=== PATIENT | male | born 1960 | race Two or more races ===

== ENCOUNTER 2017-07-03 08:13 | Inpatient (IN) | payer MEDICARE, MEDICAID ==
[~2017-07-03] VITALS: Ht 175.3 cm; Wt 123.3 kg
[2017-07-03] MEDS ORDERED: ALPR1TAB2 PO (08:56)
[2017-07-03] MEDS ORDERED: LISI5TAB7 PO (08:56)
[2017-07-03] MEDS ORDERED: LEVO200T5 PO (08:56)
[2017-07-03] MEDS ORDERED: ASPI-650 PO (08:56)
[2017-07-03] MEDS ORDERED: SODIUM CHLORIDE FLUSH 10ML SYR IVF ONE (09:00)
[2017-07-03 09:10] LABS: HEMATOCRIT 47.4 % (39.2-51.8); HEMOGLOBIN 16.2 g/dL (13.7-18.0); WHITE BLOOD COUNT 11.3 x10^3/uL (3.4-10)
[2017-07-03 09:19] LABS: ASPARTATE AMINO TRANSFERASE 31 U/L (15-37); BLOOD UREA NITROGEN 14 mg/dL (7-18)
[2017-07-03] MEDS ORDERED: DEXAMETHASONE 4 MG/ML, 1ML IVPush SCH ×2 (10:30→11:00)
[2017-07-03] MEDS ORDERED: DEXAMETHASONE 4 MG/ML, 1ML ONE (10:38)
[2017-07-03] MEDS ORDERED: morphine SULFATE 10 MG/ML, 1ML ONE ×2 (10:39→12:25)
[2017-07-03] MEDS ORDERED: GADOBUTROL 10 MMOL/10 ML PFS ONE (10:58)
[2017-07-03] MEDS ORDERED: MORPHINE SULFATE 4 MG/ML, 1ML IVPush ONE (11:00)
[2017-07-03] MEDS ORDERED: SODIUM CHLORIDE FLUSH 10ML SYR IVF PRN (11:30)
[2017-07-03] MEDS: LEVETIRACETAM 500 MG in SODIUM CHLORIDE 0.9% 100 ML IV SCH ×2 (11:43→23:00)
[2017-07-03] MEDS ORDERED: NS + 20MEQ KCL 1,000 ML IV SCH (12:10)
[2017-07-03] MEDS ORDERED: ONDANSETRON 2MG/ML, 2ML IVPush PRN (12:30)
[2017-07-03] MEDS ORDERED: ACETAMINOPHEN 325 MG TABLET PO PRN (12:30)
[2017-07-03] MEDS ORDERED: POLYETHYLENE GLYCOL 17 GM PACKET PO PRN (12:30)
[2017-07-03] MEDS: DEXAMETHASONE 4 MG TABLET PO SCH ×3 (12:30→20:06)
[2017-07-03] MEDS: morphine SULFATE 10 MG/ML, 1ML IVPush PRN ×4 (12:37→23:12)
[2017-07-03] MEDS: LEVOTHYROXINE 200 MCG TABLET PO SCH (13:33)
[2017-07-03] MEDS: METHADONE 10 MG TABLET PO SCH (13:50)
[2017-07-03] MEDS: NICOTINE 14MG/24 HR PATCH.TD24 TD SCH (13:50)
[2017-07-03] MEDS: SENNA/DOCUSATE TABLET PO SCH (13:53)
[2017-07-03 13:54] VITALS: BP 140/87
[2017-07-03] MEDS: HYDROcodone/APAP 10/325 MG TABLET PO PRN (18:38)
[2017-07-03] MEDS ORDERED: MORPHINE SULFATE 4 MG/ML, 1ML ONE (19:46)
[2017-07-03 19:57] VITALS: BP 158/94
[2017-07-03] MEDS: LEVETIRACETAM 500 MG TABLET PO SCH (21:07)
[2017-07-03] MEDS: ALPRazolam 1MG TABLET PO SCH (21:07)
[2017-07-04 01:17] VITALS: BP 146/75
[2017-07-04] MEDS: HYDROcodone/APAP 10/325 MG TABLET PO PRN ×3 (01:19→21:55)
[2017-07-04] MEDS: DEXAMETHASONE 4 MG TABLET PO SCH ×6 (01:19→21:46)
[2017-07-04] MEDS ORDERED: MORPHINE SULFATE 4 MG/ML, 1ML ONE (02:05)
[2017-07-04] MEDS: morphine SULFATE 10 MG/ML, 1ML IVPush PRN ×7 (02:10→22:53)
[2017-07-04] MEDS: LEVOTHYROXINE 200 MCG TABLET PO SCH (05:03)
[2017-07-04 05:21] LABS: BLOOD UREA NITROGEN 14 mg/dL (7-18)
[2017-07-04 07:23] VITALS: BP 135/93
[2017-07-04] MEDS: PANTOPROZOLE 40MG TABLET PO SCH (08:08)
[2017-07-04] MEDS: ALPRazolam 1MG TABLET PO SCH ×2 (08:09→21:46)
[2017-07-04] MEDS: LEVETIRACETAM 500 MG TABLET PO SCH ×2 (08:11→21:45)
[2017-07-04] MEDS: LISINOPRIL 5 MG TABLET PO SCH (08:12)
[2017-07-04] MEDS: METHADONE 10 MG TABLET PO SCH (08:20)
[2017-07-04] MEDS: SENNA/DOCUSATE TABLET PO SCH (08:20)
[2017-07-04] MEDS: LEVETIRACETAM 500 MG in SODIUM CHLORIDE 0.9% 100 ML IV SCH ×2 (11:59→21:41)
[2017-07-04] MEDS: NICOTINE 14MG/24 HR PATCH.TD24 TD SCH (13:20)
[2017-07-04 13:34] VITALS: BP 129/83
[2017-07-04] MEDS: BUTALBIT/ACETAMIN/CAFF/CODEINE CAPSULE PO PRN ×2 (14:41→17:05)
[2017-07-04] MEDS ORDERED: KETOROLAC 30 MG/1 ML IVPush ONE (18:30)
[2017-07-04 19:28] VITALS: BP 162/83
[2017-07-04] MEDS: DOCUSATE 100 MG CAPSULE PO PRN (22:57)
[2017-07-05 01:51] VITALS: BP 111/73
[2017-07-05] MEDS: DEXAMETHASONE 4 MG TABLET PO SCH ×5 (01:53→22:59)
[2017-07-05] MEDS: morphine SULFATE 10 MG/ML, 1ML IVPush PRN ×6 (01:53→23:02)
[2017-07-05] MEDS: HYDROcodone/APAP 10/325 MG TABLET PO PRN ×2 (04:12→16:34)
[2017-07-05] MEDS ORDERED: METHADONE 5 MG TABLET ONE (07:49)
[2017-07-05] MEDS: PANTOPROZOLE 40MG TABLET PO SCH (07:52)
[2017-07-05] MEDS: METHADONE 10 MG TABLET PO SCH (07:53)
[2017-07-05] MEDS ORDERED: THROMBIN 20,000 UNIT VIAL TP ONE ×2 (07:58→10:47)
[2017-07-05] MEDS ORDERED: EPINEPHRINE 1 MG/ML, 1ML ONE (07:58)
[2017-07-05] MEDS ORDERED: BUPIVACAINE/PF 0.5% ONE (07:58)
[2017-07-05] MEDS ORDERED: BACITRACIN 50,000 UNIT ONE (07:59)
[2017-07-05] MEDS ORDERED: FENTANYL PF 100 MCG/2ML ONE (08:08)
[2017-07-05] MEDS ORDERED: HYDROmorphone 2 MG/ML, 1ML ONE (08:08)
[2017-07-05] MEDS ORDERED: MIDAZOLAM 1 MG/ML, 2ML ONE (08:08)
[2017-07-05] MEDS: ALPRazolam 1MG TABLET PO SCH ×2 (09:00→20:47)
[2017-07-05] MEDS: LISINOPRIL 5 MG TABLET PO SCH (09:00)
[2017-07-05] MEDS ORDERED: SENNA/DOCUSATE TABLET PO SCH (09:00)
[2017-07-05] MEDS: LEVETIRACETAM 500 MG TABLET PO SCH ×2 (09:00→20:47)
[2017-07-05] MEDS: LEVOTHYROXINE 200 MCG TABLET PO SCH (09:00)
[2017-07-05] MEDS ORDERED: ROCURONIUM 10MG/ML,5ML ONE (09:29)
[2017-07-05] MEDS ORDERED: SUCCINYLCHOLINE 20 MG/ML, 10ML ONE (09:29)
[2017-07-05] MEDS ORDERED: DEXAMETHASONE 4 MG/ML, 5ML ONE (09:29)
[2017-07-05] MEDS ORDERED: LABETALOL 5MG/ML 40ML VIAL ONE (09:29)
[2017-07-05] MEDS ORDERED: CEFAZOLIN 1,000 MG ONE (09:29)
[2017-07-05] MEDS ORDERED: GLYCOPYRROLATE 0.4 MG/2 ML, 2ML ONE (09:29)
[2017-07-05] MEDS ORDERED: ONDANSETRON 2MG/ML, 2ML ONE (09:29)
[2017-07-05] MEDS ORDERED: PROPOFOL 10 MG/ML, 50ML ONE (09:29)
[2017-07-05] MEDS ORDERED: NEOSTIGMINE 1 MG/ML, 10ML ONE (09:29)
[2017-07-05] MEDS ORDERED: GADOBUTROL 10 MMOL/10 ML PFS ONE (09:43)
[2017-07-05] MEDS ORDERED: MANNITOL PMX 20% 500 ML ONE (10:24)
[2017-07-05] MEDS ORDERED: EPINEPHRINE 1 MG/ML, 1ML INFIL ONE (10:48)
[2017-07-05] MEDS ORDERED: BUPIVACAINE/PF 0.5% INFIL ONE (10:48)
[2017-07-05] MEDS ORDERED: ONDANSETRON 2MG/ML, 2ML IVPush PRN (11:00)
[2017-07-05] MEDS ORDERED: OXYcodone 5 MG/5 ML ORAL.SOL UDC PO PRN (11:00)
[2017-07-05] MEDS ORDERED: METOCLOPRAMIDE 5 MG/ML, 2ML IV PRN (11:00)
[2017-07-05] MEDS ORDERED: ACETAMINOPHEN 325 MG TABLET PO PRN (11:00)
[2017-07-05] MEDS ORDERED: LABETALOL 5MG/ML, 20ML IV PRN (11:00)
[2017-07-05] MEDS ORDERED: FENTANYL PF 100 MCG/2ML IV PRN (11:00)
[2017-07-05] MEDS ORDERED: hydrALAzine 20 MG/ML, 1ML IV PRN (11:00)
[2017-07-05] MEDS ORDERED: DIPHENHYDRAMINE 50 MG/ML, 1ML IV PRN (13:30)
[2017-07-05] MEDS ORDERED: ONDANSETRON 2MG/ML, 2ML IV PRN (13:30)
[2017-07-05] MEDS ORDERED: ACETAMINOPHEN 325 MG TABLET ONE (13:30)
[2017-07-05] MEDS ORDERED: ACETAMINOPHEN 650 MG/20.3 ML UDC ONE (13:30)
[2017-07-05] MEDS ORDERED: BISACODYL 10 MG SUPP PR PRN (13:30)
[2017-07-05] MEDS ORDERED: MAGNESIUM HYDROXIDE 8%, 30ML UDC PO PRN (13:30)
[2017-07-05] MEDS ORDERED: HYDROmorphone 1 MG/ML, 1ML ONE ×2 (13:31→13:58)
[2017-07-05] MEDS ORDERED: OXYcodone 5 MG/5 ML ORAL.SOL UDC ONE (13:31)
[2017-07-05] MEDS: HYDROmorphone 1 MG/ML, 1ML IV PRN ×4 (13:38→14:04)
[2017-07-05] MEDS: POTASSIUM CHLORIDE 20 MEQ in SODIUM CHLORIDE 0.9% 1,000 ML IV SCH (16:34)
[2017-07-05] MEDS: NICOTINE 14MG/24 HR PATCH.TD24 TD SCH (16:40)
[2017-07-05] MEDS: CEFUROXIME 1.5 GM in SODIUM CHLORIDE 0.9% 50 ML IVPB SCH (18:12)
[2017-07-05] MEDS: OXYcodone 5 MG/5 ML ORAL.SOL UDC PO PRN (19:00)
[2017-07-06] MEDS: OXYcodone 5 MG/5 ML ORAL.SOL UDC PO PRN ×5 (00:08→19:36)
[2017-07-06] MEDS: morphine SULFATE 10 MG/ML, 1ML IVPush PRN ×10 (02:07→21:25)
[2017-07-06] MEDS: CEFUROXIME 1.5 GM in SODIUM CHLORIDE 0.9% 50 ML IVPB SCH (02:17)
[2017-07-06] MEDS: DEXAMETHASONE 4 MG TABLET PO SCH ×4 (04:32→21:27)
[2017-07-06] MEDS: POTASSIUM CHLORIDE 20 MEQ in SODIUM CHLORIDE 0.9% 1,000 ML IV SCH (04:33)
[2017-07-06 04:59] LABS: BLOOD UREA NITROGEN 18 mg/dL (7-18)
[2017-07-06 05:00] LABS: HEMATOCRIT 40.3 % (39.2-51.8); HEMOGLOBIN 13.6 g/dL (13.7-18.0); WHITE BLOOD COUNT 18.4 x10^3/uL (3.4-10)
[2017-07-06] MEDS: PANTOPROZOLE 40MG TABLET PO SCH (07:46)
[2017-07-06] MEDS: METHADONE 10 MG TABLET PO SCH (07:46)
[2017-07-06] MEDS: ALPRazolam 1MG TABLET PO SCH (09:00)
[2017-07-06] MEDS: LEVETIRACETAM 500 MG TABLET PO SCH ×2 (09:18→20:19)
[2017-07-06] MEDS: LISINOPRIL 5 MG TABLET PO SCH (09:19)
[2017-07-06] MEDS: LEVOTHYROXINE 200 MCG TABLET PO SCH (09:20)
[2017-07-06] MEDS: SENNA/DOCUSATE TABLET PO SCH (09:20)
[2017-07-06] MEDS: NICOTINE 14MG/24 HR PATCH.TD24 TD SCH (12:31)
[2017-07-06 15:15] VITALS: BP 132/79
[2017-07-06 18:46] VITALS: BP 156/94
[2017-07-06] MEDS ORDERED: HYDROmorphone 1 MG/ML, 1ML ONE (22:42)
[2017-07-06] MEDS ORDERED: HYDROmorphone 1 MG/ML, 1ML IV ONE (23:00)
[2017-07-07] MEDS: HYDROmorphone 2 MG/ML, 1ML IVPush PRN ×11 (01:05→22:29)
[2017-07-07 01:47] VITALS: BP 120/78
[2017-07-07] MEDS: DEXAMETHASONE 4 MG TABLET PO SCH ×4 (03:01→20:49)
[2017-07-07] MEDS: DOCUSATE 100 MG CAPSULE PO PRN ×2 (03:02→17:06)
[2017-07-07] MEDS: OXYcodone 5 MG/5 ML ORAL.SOL UDC PO PRN ×4 (03:02→19:51)
[2017-07-07 04:44] LABS: HEMATOCRIT 42.2 % (39.2-51.8); HEMOGLOBIN 14.1 g/dL (13.7-18.0); WHITE BLOOD COUNT 16.9 x10^3/uL (3.4-10)
[2017-07-07 05:03] LABS: BLOOD UREA NITROGEN 19 mg/dL (7-18)
[2017-07-07 05:14] LABS: ASPARTATE AMINO TRANSFERASE 39 U/L (15-37)
[2017-07-07] MEDS: METHADONE 10 MG TABLET PO SCH (06:28)
[2017-07-07 06:58] VITALS: BP 147/81
[2017-07-07] MEDS: PANTOPROZOLE 40MG TABLET PO SCH (07:31)
[2017-07-07] MEDS: LEVOTHYROXINE 200 MCG TABLET PO SCH (08:42)
[2017-07-07] MEDS: LEVETIRACETAM 500 MG TABLET PO SCH ×2 (08:42→20:49)
[2017-07-07] MEDS: LISINOPRIL 5 MG TABLET PO SCH (08:43)
[2017-07-07] MEDS: SENNA/DOCUSATE TABLET PO SCH (08:44)
[2017-07-07] MEDS: NICOTINE 14MG/24 HR PATCH.TD24 TD SCH (12:39)
[2017-07-07 13:57] VITALS: BP 167/93
[2017-07-07 18:46] VITALS: BP 153/101
[2017-07-07] MEDS: TEMAZEPAM 15 MG CAPSULE PO PRN ×2 (20:20→22:29)
[2017-07-08] MEDS: HYDROmorphone 2 MG/ML, 1ML IVPush PRN ×7 (01:21→19:36)
[2017-07-08 01:25] VITALS: BP 144/84
[2017-07-08] MEDS: OXYcodone 5 MG/5 ML ORAL.SOL UDC PO PRN ×6 (02:08→20:56)
[2017-07-08] MEDS: DEXAMETHASONE 4 MG TABLET PO SCH ×4 (03:55→20:56)
[2017-07-08 05:05] LABS: HEMATOCRIT 43.2 % (39.2-51.8); HEMOGLOBIN 14.5 g/dL (13.7-18.0)
[2017-07-08 05:19] LABS: BLOOD UREA NITROGEN 22 mg/dL (7-18)
[2017-07-08] MEDS: METHADONE 10 MG TABLET PO SCH (05:53)
[2017-07-08 05:58] LABS: DIFF TOTAL CELLS COUNTED 100 CELL DIFF
[2017-07-08 06:00] LABS: VERIFY COUNTS? YES
[2017-07-08 06:38] VITALS: BP 135/89
[2017-07-08] MEDS: PANTOPROZOLE 40MG TABLET PO SCH (07:40)
[2017-07-08] MEDS: LEVETIRACETAM 500 MG TABLET PO SCH ×2 (10:54→20:56)
[2017-07-08] MEDS: SENNA/DOCUSATE TABLET PO SCH (10:54)
[2017-07-08] MEDS: LISINOPRIL 5 MG TABLET PO SCH (10:55)
[2017-07-08] MEDS: LEVOTHYROXINE 200 MCG TABLET PO SCH (10:56)
[2017-07-08] MEDS: NICOTINE 14MG/24 HR PATCH.TD24 TD SCH (12:02)
[2017-07-08 13:22] VITALS: BP 117/78
[2017-07-08] MEDS ORDERED: OXYcodone 5 MG/5 ML ORAL.SOL UDC PO PRN (18:30)
[2017-07-08 18:55] VITALS: BP 124/79
[2017-07-08] MEDS: TEMAZEPAM 15 MG CAPSULE PO PRN (20:56)
[2017-07-09] MEDS: HYDROmorphone 2 MG/ML, 1ML IVPush PRN ×4 (02:13→22:39)
[2017-07-09 02:19] VITALS: BP 126/77
[2017-07-09] MEDS: METHADONE 10 MG TABLET PO SCH (05:14)
[2017-07-09] MEDS: DEXAMETHASONE 4 MG TABLET PO SCH ×4 (05:14→23:57)
[2017-07-09 05:42] LABS: HEMATOCRIT 45.7 % (39.2-51.8); HEMOGLOBIN 15.4 g/dL (13.7-18.0); WHITE BLOOD COUNT 19.3 x10^3/uL (3.4-10)
[2017-07-09 05:59] LABS: ASPARTATE AMINO TRANSFERASE 36 U/L (15-37); BLOOD UREA NITROGEN 19 mg/dL (7-18)
[2017-07-09] MEDS: LEVOTHYROXINE 200 MCG TABLET PO SCH (06:13)
[2017-07-09 06:19] LABS: DIFF TOTAL CELLS COUNTED 100 CELL DIFF
[2017-07-09 06:21] LABS: VERIFY COUNTS? YES
[2017-07-09 07:45] VITALS: BP 143/79
[2017-07-09] MEDS: LEVETIRACETAM 500 MG TABLET PO SCH ×2 (08:12→21:45)
[2017-07-09] MEDS: PANTOPROZOLE 40MG TABLET PO SCH (08:12)
[2017-07-09] MEDS: LISINOPRIL 20 MG TABLET PO SCH (08:13)
[2017-07-09] MEDS: SENNA/DOCUSATE TABLET PO SCH (08:13)
[2017-07-09] MEDS: OXYcodone 5 MG/5 ML ORAL.SOL UDC PO PRN ×2 (10:19→15:17)
[2017-07-09] MEDS: NICOTINE 14MG/24 HR PATCH.TD24 TD SCH (13:22)
[2017-07-09 14:11] VITALS: BP 144/93
[2017-07-09] MEDS ORDERED: BISACODYL 10 MG SUPP PR PRN (16:00)
[2017-07-09] MEDS ORDERED: ACETAMINOPHEN 325 MG TABLET PO PRN (16:00)
[2017-07-09] MEDS ORDERED: POLYETHYLENE GLYCOL 17 GM PACKET PO PRN (16:00)
[2017-07-09] MEDS ORDERED: HYDROmorphone 2 MG/ML, 1ML IVPush PRN (18:00)
[2017-07-09] MEDS ORDERED: OXYcodone 5 MG/5 ML ORAL.SOL UDC PO PRN (18:00)
[2017-07-09 19:12] VITALS: BP 126/77
[2017-07-09] MEDS: ALPRazolam 1MG TABLET PO PRN (21:45)
[2017-07-09] MEDS: TEMAZEPAM 15 MG CAPSULE PO PRN (22:39)
[2017-07-10] MEDS: OXYcodone 5 MG/5 ML ORAL.SOL UDC PO PRN ×2 (03:35→10:38)
[2017-07-10 04:50] VITALS: BP 109/73
[2017-07-10] MEDS: METHADONE 10 MG TABLET PO SCH (05:07)
[2017-07-10] MEDS: BUTALBIT/ACETAMIN/CAFF/CODEINE CAPSULE PO PRN ×2 (05:55→14:28)
[2017-07-10] MEDS: DEXAMETHASONE 4 MG TABLET PO SCH ×2 (05:58→12:03)
[2017-07-10] MEDS: HYDROmorphone 2 MG/ML, 1ML IVPush PRN (06:30)
[2017-07-10 08:14] VITALS: BP 121/84
[2017-07-10] MEDS: SENNA/DOCUSATE TABLET PO SCH (08:20)
[2017-07-10] MEDS: LEVOTHYROXINE 200 MCG TABLET PO SCH (08:21)
[2017-07-10] MEDS: LEVETIRACETAM 500 MG TABLET PO SCH (08:21)
[2017-07-10] MEDS: LISINOPRIL 20 MG TABLET PO SCH (08:21)
[2017-07-10] MEDS: PANTOPROZOLE 40MG TABLET PO SCH (08:21)
[2017-07-10] MEDS: ALPRazolam 1MG TABLET PO PRN (08:33)
[2017-07-10] MEDS: NICOTINE 14MG/24 HR PATCH.TD24 TD SCH (12:03)
[2017-07-10] MEDS ORDERED: METH40TA3 PO (12:18)
[2017-07-10] MEDS ORDERED: NICO-486 TD (12:49)
[2017-07-10] MEDS ORDERED: DEXA4TAB PO (12:49)
[2017-07-10] MEDS ORDERED: LEVE500T53 PO (12:49)
[2017-07-10 14:34] VITALS: BP 136/89
[2017-07-10 16:21] VITALS: BP 148/70
== END 2017-07-10 14:39 | disposition home or self-care (01) | DRG 25 ==
LOC: ED 11:09 → EDIP 11:10 → ED 11:15 → SUATTDRO 12:00 → 3NW 13:00 → CCU 07-05 14:25 → ICU 07-06 03:36 → 3NW 07-06 14:47
PROVIDERS: ADMIT Family Medicine; ATTEND Family Medicine
PROC: 00B00ZX Excision of Brain, Open Approach, Diagnostic (ICD-10-PCS; principal; 2017-07-03)
PROC: 00B20ZX Excision of Dura Mater, Open Approach, Diagnostic (ICD-10-PCS; 2017-07-03)
DX: C71.9 Malignant neoplasm of brain, unspecified (principal); G93.5 Compression of brain; G93.89 Other specified disorders of brain; E87.1 Hypo-osmolality and hyponatremia; G81.94 Hemiplegia, unspecified affecting left nondominant side; J98.11 Atelectasis; I10 Essential (primary) hypertension; Z88.8 Allergy status to other drugs, medicaments and biological substances; E03.9 Hypothyroidism, unspecified; F17.210 Nicotine dependence, cigarettes, uncomplicated; G89.18 Other acute postprocedural pain; G89.29 Other chronic pain; Z79.899 Other long term (current) drug therapy; Z80.1 Family history of malignant neoplasm of trachea, bronchus and lung; Z83.3 Family history of diabetes mellitus
CPT/HCPCS: 36415; 70450; 70553; 71010; 80048; 80053; 81003; 82550; 83735; 84443; 85025; 85610; 85730; 87081; 88305; 88307; 88331; 93005; 96365; 96375; A9585; C1713; J0171; J0690; J0697; J1100; J1170; J1885; J1953; J2250; J2405; J2704; J2710; J3010; J3480; J3490; A4648; C1768; J0330; J1200; J2270; J7030

== ENCOUNTER 2017-07-14 12:57 | Emergency (ER) | payer MEDICARE, MEDICAID ==
[~2017-07-14] VITALS: Ht 175.3 cm; Wt 117.3 kg
[~2017-07-14 12:57] MED LIST: ALPR1TAB2 PO; ASPI-650 PO; DEXA4TAB PO; LEVE500T53 PO; LEVO200T5 PO; LISI5TAB7 PO; METH40TA3 PO; NICO-486 TD
[2017-07-14] MEDS ORDERED: ONDANSETRON ODT 4 MG PO ONE (14:30)
[2017-07-14] MEDS ORDERED: HYDROmorphone 1 MG/ML, 1ML ONE ×2 (14:31→15:55)
[2017-07-14] MEDS ORDERED: ONDANSETRON ODT 4 MG ONE (14:31)
[2017-07-14] MEDS: HYDROmorphone 1 MG/ML, 1ML IM PRN ×2 (14:35→15:57)
[2017-07-14 15:50] VITALS: BP 118/61
== END 2017-07-14 15:52 | disposition home or self-care (01) ==
LOC: ED 15:29
DX: R51 Headache (principal); I10 Essential (primary) hypertension; Z90.49 Acquired absence of other specified parts of digestive tract; Z88.1 Allergy status to other antibiotic agents
CPT/HCPCS: 70450; 96372; 99284; J1170; Q0162

== ENCOUNTER → 2017-07-17 | Outpatient (CLI) | payer MEDICARE, MEDICAID | END | disposition home or self-care (01) | LOC: ROC 10:07 | PROVIDERS: ATTEND Radiology Radiation Oncology | DX: G93.9 Disorder of brain, unspecified (principal) | CPT/HCPCS: 99214; G0463 ==

== ENCOUNTER → 2017-08-21 | Outpatient (CLI) | payer MEDICARE, MEDICAID | END | disposition home or self-care (01) | LOC: CFH 09:17 | PROVIDERS: ATTEND Registered Nurse Registered Nurse First Assistant | DX: C71.9 Malignant neoplasm of brain, unspecified (principal); Z98.890 Other specified postprocedural states | CPT/HCPCS: 70450 ==

== ENCOUNTER → 2017-09-28 | Outpatient (CLI) | payer MEDICARE, MEDICAID ==
[~2017-09-28] MED LIST changes: +OMNIPAQUE 350 MG/ML, 100ML BOTTLE ONE
== END ==
LOC: CFH 13:03
PROVIDERS: ATTEND Nurse Practitioner Family
DX: T81.4XXD Infection following a procedure, subsequent encounter (principal); Z98.890 Other specified postprocedural states
CPT/HCPCS: 70470; 82565; Q9967

== ENCOUNTER → 2017-10-02 | Outpatient (CLI) | payer MEDICARE, MEDICAID ==
[~2017-10-02] MED LIST changes: -OMNIPAQUE 350 MG/ML, 100ML BOTTLE ONE
== END | disposition home or self-care (01) ==
LOC: ROC 10:41
PROVIDERS: ATTEND Radiology Radiation Oncology
DX: C71.3 Malignant neoplasm of parietal lobe (principal)
CPT/HCPCS: G0463